=== PATIENT | female | born 1970 | race African-American/Black ===

== ENCOUNTER 2024-01-29 14:39 | Emergency (ER) | payer MEDICAID ==
[~2024-01-29] VITALS: Ht 170.2 cm; Wt 100.0 kg
[2024-01-29 15:01] VITALS: O2SAT 98
[2024-01-29 15:28] LABS: BASOPHILS % 0.5 % (0.0-2.0); EOSINOPHILS % 2.4 % (0.0-5.0); HEMATOCRIT. 38.5 % (36.0-48.0); HEMOGLOBIN. 12.9 g/dL (12.0-16.0); LYMPHOCYTES % 26.6 % (20.0-50.0); MEAN CORPUSCULAR HEMOGLOBIN 31.1 pg (28.0-32.0); MEAN CORPUSCULAR HGB CONC 33.6 g/dL (31.0-37.0); MEAN CORPUSCULAR VOLUME 92.8 fL (81.0-99.0); MEAN PLATELET VOLUME 8.3 fl (7.4-10.4); MONOCYTES % 5.9 % (2.0-8.0); NEUTROPHILS % 64.6 % (40.0-76.0); PLATELET 224 x1000/uL (130-400); RED BLOOD CELL COUNT 4.15 mill/uL (4.2-5.4); RED CELL DISTRIBUTION WIDTH 18.8 % (11.6-14.6); WHITE BLOOD COUNT 7.8 x1000/uL (4.5-11.0)
[2024-01-29 15:33] LABS: CHLORIDE 108 mEq/L (98-107); POTASSIUM 3.5 mEq/L (3.5-5.1); SODIUM 142 mEq/L (136-145)
[2024-01-29 15:34] LABS: CALCIUM 9.6 mg/dL (8.7-10.4); CARBON DIOXIDE 28 mEq/L (21-32)
[2024-01-29 15:39] LABS: CREATININE 1.1 mg/dL (0.6-1.0); GLUCOSE 119 mg/dL (70-105); UREA NITROGEN BLOOD 10 mg/dL (9-23)
[2024-01-29 15:47] LABS: PROTHROMBIN TIME 10.7 sec (9.6-11.0)
[2024-01-29] MEDS: ACETAMINOPHEN 325MG TABLET PO ONE (15:54)
[2024-01-29] MEDS: METOCLOPRAMIDE HCL 10MG TABLET PO ONE (16:33)
[2024-01-29] MEDS: KETOROLAC 30MG/ML VIAL IM ONE (16:33)
[2024-01-29] MEDS ORDERED: ACET-2708 MT (16:39)
[2024-01-29 17:06] VITALS: BP 167/95; PULSE 81; RESP 18; TEMP 98.5
[2024-01-30] MEDS ORDERED: HYDR-4001 MT (16:45)
[2024-01-30] MEDS ORDERED: ONDA4TAB50 MT (16:45)
[2024-01-30] MEDS ORDERED: LOSA100T33 MT (16:59)
[2024-01-30] MEDS ORDERED: AMLO10TA4 MT (16:59)
== END 2024-01-29 17:06 | disposition home or self-care (01) ==
LOC: ER 14:39
DX: R51.9 Headache, unspecified (principal); I10 Essential (primary) hypertension; Z87.820 Personal history of traumatic brain injury
CPT/HCPCS: 99285; 70450; 71045; 80048; 85025; 85610; 85730; 36415; 70360; 74018; 96372; J8597; J1885

== ENCOUNTER 2024-01-30 12:59 | Emergency (ER) | payer MEDICAID ==
[~2024-01-30] VITALS: Ht 170.2 cm; Wt 99.0 kg
[~2024-01-30 12:59] MED LIST: ACET-2708 MT
[2024-01-30 13:03] VITALS: O2SAT 96
[2024-01-30] MEDS: HYDROCODONE/ACETAMINOPHEN 7.5/325MG TABLET PO ONE (14:34)
[2024-01-30 14:51] LABS: BASOPHILS % 0.5 % (0.0-2.0); EOSINOPHILS % 2.4 % (0.0-5.0); HEMATOCRIT. 39.2 % (36.0-48.0); HEMOGLOBIN. 13.1 g/dL (12.0-16.0); LYMPHOCYTES % 25.9 % (20.0-50.0); MEAN CORPUSCULAR HGB CONC 33.4 g/dL (31.0-37.0); MEAN CORPUSCULAR VOLUME 92.8 fL (81.0-99.0); MEAN PLATELET VOLUME 8.7 fl (7.4-10.4); NEUTROPHILS % 66.2 % (40.0-76.0); PLATELET 217 x1000/uL (130-400); RED BLOOD CELL COUNT 4.22 mill/uL (4.2-5.4); RED CELL DISTRIBUTION WIDTH 18.1 % (11.6-14.6); WHITE BLOOD COUNT 8.9 x1000/uL (4.5-11.0)
[2024-01-30 14:53] LABS: CHLORIDE 108 mEq/L (98-107); POTASSIUM 3.5 mEq/L (3.5-5.1); SODIUM 140 mEq/L (136-145)
[2024-01-30 14:54] LABS: CARBON DIOXIDE 27 mEq/L (21-32)
[2024-01-30 14:55] LABS: CALCIUM 9.4 mg/dL (8.7-10.4)
[2024-01-30 14:59] LABS: GLUCOSE 121 mg/dL (70-105); UREA NITROGEN BLOOD 10 mg/dL (9-23)
[2024-01-30 15:01] LABS: HCG SCREEN NEGATIVE
[2024-01-30] MEDS ORDERED: HYDR-4001 MT (16:45)
[2024-01-30] MEDS ORDERED: ONDA4TAB50 MT (16:45)
[2024-01-30] MEDS ORDERED: AMLO10TA4 MT (16:59)
[2024-01-30] MEDS ORDERED: LOSA100T33 MT (16:59)
[2024-01-30 17:04] VITALS: BP 162/104; PULSE 84; RESP 14; TEMP 98.4
== END 2024-01-30 17:13 | disposition home or self-care (01) ==
LOC: ER 12:59 → EDBEDREQTM 16:24 → EDBEDREQ 16:24 → ER 17:13
DX: R51.9 Headache, unspecified (principal); I10 Essential (primary) hypertension
CPT/HCPCS: 80048; 84703; 83880; 85025; 36415; 71045; 93005; 99285; Z7610